=== PATIENT | male | born 1980 | race Caucasian/White ===

== ENCOUNTER 2019-01-18 11:20 | Emergency (ER) | payer OTHER ==
[2019-01-18 11:30] VITALS: BP 115/78
[2019-01-18] MEDS ORDERED: ATIVAN IV STA (11:35)
--- NOTE | 2019-01-18 11:35 | ER.PDOC ---
General Chief Complaint: Requesting Medical Care Stated Complaint: CHEST PAIN Time seen by MD: 11:22 Source: patient, EMS Exam Limitations: no limitations History of Present Illness Initial Comments Pt c/o pain in middle/right anterior chest. Started while [place] was [place] grass [place]. Pain described as fluttery, and sharp. Had questionable seizure , EMS reports that pt was talking throughout event, never lost consciousness completely. Progress Progress Pt's HR decreased to nml rate, no longer anxious after Ativan. Will try Toradol to help. Pt was asleep when I entered room, no apparent distress. Pts pain gone with Toradol, neg trop x2, no ischemia on EKG, will d/c home w/ f/u at PMD or clinic of his choice. EKG/XRAY/CT/US EKG: NSR EKG Comments: early repol ant precordial leads; no reciprocal ST depressions XRAY: elbow XRAY Comments: nml Departure Time of Disposition: 14:39 Disposition: 01 HOME, SELF-CARE Impression: Primary Impression: Chest wall pain Additional Impression: Anxiety reaction Condition: Stable Additional Instructions: f/u PMD or care clinic 1-2 days Duration or Time Spent with Pa: 35 Problem Qualifiers MIRIAM WILD DO Jan 18, 2019 11:35
[2019-01-18] MEDS ORDERED: ATIVAN ONE (11:49)
[2019-01-18 11:50] LABS: BASOPHIL % 0.4 % (0.0-0.2); EOSINOPHIL # 0.1 10^3/uL (0.0-0.2); EOSINOPHIL % 0.9 % (0.0-5.0); HEMOGLOBIN 15.5 g/dL (13.9-16.3); LYMPHOCYTES # 1.9 10^3/uL (1.0-4.8); LYMPHOCYTES % 24.4 % (24.0-44.0); MEAN CELL HGB CONCENTRATION 34.9 g/dL (33-37); MEAN CORP VOLUME 94.5 fL (78-100); MEAN PLATELET VOLUME 10.4 fL (7.8-11.0); MONOCYTES # 0.5 10^3/uL (0.3-0.8); MONOCYTES % 6.7 % (5.0-12.0); NEUTROPHIL # 5.4 10^3/uL (1.8-7.7); NEUTROPHILS % 67.5 % (41.0-85.0); RED CELL DISTRIBUTION WIDTH 13.5 % (11.5-14.5); WHITE BLOOD CELL 7.9 10^3/uL (4.5-11.0)
--- NOTE | 2019-01-18 12:08 | DIREP ---
PROCEDURE:CHEST 1 VIEW COMPARISON:None. INDICATIONS:chest pain FINDINGS: LUNGS/PLEURA:No significant pulmonary parenchymal abnormalities. No effusions. VASCULATURE:Normal. Unremarkable pulmonary vasculature. CARDIAC:Normal. No cardiac silhouette abnormality or cardiomegaly. MEDIASTINUM:Normal. No visible mass or adenopathy. BONES:Normal. No fracture or visible bony lesion. OTHER:Negative. CONCLUSION:Normal examination. Dictated by: Rachid Malone M.D. on 01/18/2019 at 12:06 PM
--- NOTE | 2019-01-18 12:15 | NUR ---
UPDATE ASKED PATIENT FOR URINE SAMPLE HE STATES THAT HE DOES NOT NEED TO URINATE AT THIS TIME. ENCOURAGED HIM TO JUST GIVEN A SMALL SAMPLE IF HE COULD. LEFT URINAL AT BEDSIDE.
[2019-01-18 12:31] LABS: ALANINE AMINOTRANSFERASE(ML) 26 U/L (12-78); ALKALINE PHOSPHATASE 54 U/L (50-136); ASPARTATE AMINO TRANSFERASE 16 U/L (0-35); CARBON DIOXIDE 25.2 mmol/L (20.0-32); GLUCOSE 97 mg/dL (70-110)
[2019-01-18] MEDS ORDERED: TORADOL ONE (13:10)
[2019-01-18] MEDS ORDERED: TORADOL IV PRN (13:30)
--- NOTE | 2019-01-18 13:56 | NUR ---
UPDATE PATIENT NODDED HIS HEAD YES THAT PAIN IS BETTER AT THIS TIME. HE WOULD NOT UNCOVER HIS HEAD TO TALK TO ME. NOTIFIED EDP THAT PAIN HAD IMPROVED.
--- NOTE | 2019-01-18 14:40 | NUR ---
IV IV REMOVED CATHETER INTACT APPLIED [employer] NO BLEEDING NOTED.
--- NOTE | 2019-01-18 16:03 | PCM.EKG ---
[facility] Test Date: 2019-01-18 Test Time: 11:22:59 Pat Name: SPENCER MCCLAIN Department: Room: Gender: M [employer]visor [employer]: TB : 1980 Requested By: MIRIAM WILD Order Number: [id number] Reading MD: Measurements Intervals [place] Rate: 89 P: 48 MN: 148 QRS: 71 QRSD: 78 T: 61 QT: 338 QTc: 412 Interpretive Statements Sinus rhythm ST elev, probable normal early repol pattern No previous ECG available for comparison Please click the below link to view image of tracing.
== END 2019-01-18 14:49 | disposition home or self-care (01) ==
LOC: EDBD 11:20 → ER 11:20
DX: F41.1 Generalized anxiety disorder (principal)
CPT/HCPCS: 36415; 71045; 80053; 80307; 80349; 82550; 82553; 83880; 84484 ×2; 85025; 93005; 96374; 96375; 99285; J1885; J2060